=== PATIENT | female | born 1995 | race Asian ===

== ENCOUNTER 2021-03-26 14:10 | Emergency (ER) | payer OTHER, SELFPAY ==
[2021-03-26 14:38] VITALS: BP 105/73; PULSE 94; RESP 18; TEMP 37.1; O2SAT 96; BMI 22.8
--- NOTE | 2021-03-26 15:22 | ED.ALLEREA ---
HPI - Allergic Reaction General Chief complaint: Allergic Reaction Stated complaint: allergic reaction Time Seen by Provider: 03/26/21 15:11 Source: patient Mode of arrival: ambulatory Limitations: no limitations History of Present Illness HPI narrative: 26-year-old female with a past medical history of bipolar 1 disorder, asthma, tendinitis and carpal tunnel syndrome presenting to the ED with complaints of allergic reaction with mild upper lip swelling and itchiness after eating almond butter approximately 1:30 prior to arrival. Reports that she has eaten this in the past and has never had a reaction. Denies any other symptom complaints or concerns at this time. 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[employer]) Exposure: food (almond butter) Symptoms: itching and lip swelling (mild upper lip) Severity: mild Treatment prior to arrival: none Previous Allergic Reaction History: none Related Data Previous Rx's Medication Instructions Recorded diphenhydramine HCl [Benadryl 50 mg PO TID PRN #20 tab 03/26/21 Allergy] epinephrine [EpiPen] 0.3 mg IM Q20M PRN #2 ea 03/26/21 famotidine [Pepcid] 20 mg PO BID #20 tab 03/26/21 prednisone 40 mg PO DAILY 5 Days #10 tab 03/26/21 Allergies Allergy/AdvReac Type Severity Reaction Status Date / Time haloperidol [From Haldol] Allergy Unknown Verified 03/26/21 14:37 lamotrigine [From Lamictal] Allergy Angioedema Verified 03/26/21 14:37 olanzapine [From Zyprexa] Allergy Fainting Verified 03/26/21 14:37 prazosin AdvReac Hypotension Verified 03/26/21 14:37 Review of Systems Review of Systems: Constitutional : No Fever, No Chills , no body aches, no recent illness Head/Face: Positive upper lip swelling, No facial swelling, No facial redness ENT/Mouth : No oral/throat swelling, No Hoarseness, No Swallowing Difficulty Eyes: No Eye Pain, No Swelling, No Redness Cardiovascular : No Chest Pain, No SOB, No palpitations Respiratory : No Cough, No Sputum, No Wheezing, No Smoke Exposure, No Dyspnea Gastrointestinal : No Nausea, No Vomiting, No Diarrhea, No abdominal Pain Genitourinary : No Dysuria, No Urinary Frequency, No Hematuria Musculoskeletal : No joint pain, No Myalgias, No Joint Swelling Skin : No Skin Lesions, no rash Neuro : No Weakness, No Numbness, No Headache, No dizziness, No tingling Psych : No Anxiety/Panic, No Depression Heme/Lymph: No Bruising, No Lymphadenopathy Endocrine : No Polyuria, No Polydipsia Denies changes in lotions or detergents. Denies new medications or any changes in medications. Denies drainage from rash. Denies any recent sick contacts or recent travel. Yes all other systems are reviewed and are negative [facility] Past Medical History Attestation statement: The following information was validated with the patient. Medical History Asthma Bipolar 1 disorder Carpal tunnel syndrome Tendinitis Social History Social History Advance Directives: No Advance Directives Information Provided: Yes Patient : No Physical Exam Vital Signs: Vital Signs: Last Vital Signs Temp 98.7 F 03/26/21 14:38 Pulse 94 03/26/21 14:38 Resp 18 03/26/21 14:38 BP 105/73 03/26/21 14:38 Pulse Ox 96 03/26/21 14:38 Body Mass Index 22.8 vital signs have been reviewed as normal and appeared to be correct. Blood pressure normal. Heart rate normal. Respiration rate normal. Temperature normal. Oxygen saturation normal. Appearance: Alert. Oriented X3. No acute distress. Head: Normal external exam. Normocephalic. Eyes: PERRLA. EOMI. Conjunctiva and sclera normal. Eyelids normal. ENT: Mild upper lip swelling otherwise no rashes noted. Pharynx normal. Uvula midline. Moist mucous membranes. No trismus noted. No drooling noted. No muffled voice noted. Neck: Normal inspection. Neck supple. FROM. No adenopathy. No meningeal signs. CVS: Normal heart rate and rhythm. Heart sound normal. No murmurs noted. Pulses normal throughout. Respiratory: No respiratory distress. Painless inspiration. Breath sounds normal. No wheezes/rales/rhonchi noted. Chest nontender. No accessory muscle usage noted or decreased air movement noted. Abdomen: Soft and nontender. Nondistended. No guarding. No rigidity. Bowel sounds normal in all 4 quadrants. No distention noted. No organomegaly noted. No visible injury noted. No rebound tenderness. Negative Rovsing sign. Negative obturator's sign. Negative psoas sign. Negative Maradiaga sign. Back: No CVA tenderness. Full range of motion noted. Skin: Skin warm and dry. Normal skin color. Normal skin turgor. No rashes/lesions/lacerations noted. Extremities: Extremities exhibit normal range of motion. Extremities nontender. Neuro: Oriented X 3. No motor deficit. No sensory deficit. Reflexes normal. Normal steady gait. Course Course Course Narrative: IMP/Plan: Allergic rxn. Not anaphylaxis. Not sepsis/ infectious etiology. Patient well appearing in no acute distress, breathing easily without throat symptoms. Speaking full sentences, and handling secretions without difficulty. There is no obvious threat to airway. Lungs are CTA in all [place]. No signs of angioedema, stridor, airway compromise, anaphylaxis or anaphylactic shock. Not c/w SSSS/ TEN/ Eryth multiforme/ Daley Johnsons. Given HPI and PE - Will watch and observe. If patient continues to be symptom free - will d/c with return precautions. Patient understands and agrees with plan MDM - Allergic Reaction Medical Records Attestation: I reviewed the patient's medical records. Discharge Plan Discharge Clinical Impression: Allergic reaction Patient Disposition: Home, Self-Care Instructions: Anaphylaxis (ED), Allergies (ED), Allergy Testing (ED) Prescriptions: New prednisone 20 mg tablet 40 mg PO DAILY 5 Days Qty: 10 RF: 0 famotidine [Pepcid] 20 mg tablet 20 mg PO BID Qty: 20 RF: 0 epinephrine [EpiPen] 0.3 mg/0.3 mL auto-injector 0.3 mg IM Q20M PRN (Reason: anaphylaxis) Qty: 2 RF: 0 diphenhydramine HCl [Benadryl Allergy] 25 mg tablet 50 mg PO TID PRN (Reason: allergic reaction) Qty: 20 RF: 0 Referrals: Physician,None [Primary Care Provider] - 2 days (You need to follow-up with her primary care provider for allergy testing. Return if any new or worsening symptoms.) Stand Alone Forms: Work/School Release Print Language: Korean
== END 2021-03-26 15:54 | disposition home or self-care (01) ==
PROVIDERS: Emergency Provider Emergency Medicine
DX: T78.40XA Allergy, unspecified, initial encounter (principal); R22.0 Localized swelling, mass and lump, head; X58.XXXA Exposure to other specified factors, initial encounter
CPT/HCPCS: 99283

== ENCOUNTER 2021-04-12 00:05 | Emergency (ER) | payer OTHER, SELFPAY ==
[2021-04-12 00:06] VITALS: BP 120/70; PULSE 110; O2SAT 100
[2021-04-12 00:09] VITALS: RESP 18; BMI 22.0
[2021-04-12 00:10] VITALS: BP 116/66; PULSE 102; RESP 16; TEMP 36.6; O2SAT 99
--- NOTE | 2021-04-12 00:14 | ED.ALLEREA ---
HPI - Allergic Reaction General Chief complaint: Allergic Reaction Stated complaint: allergic reation Time Seen by Provider: 04/12/21 00:14 Source: patient Mode of arrival: ambulatory Limitations: no limitations History of Present Illness HPI narrative: Patient has questionable allergic reactions to nuts had pizza today with knots crusting head had 2 pieces of it and within 30 minutes of that noticed stiffness in the neck and started throwing up patient started having allergic reaction took EpiPen at home now she is feeling better. No hives no itching no stridor no shortness of breath patient has similar reaction when she had almond butter last week Related Data Previous Rx's Medication Instructions Recorded diphenhydramine HCl [Benadryl 50 mg PO TID PRN #20 tab 03/26/21 Allergy] epinephrine [EpiPen] 0.3 mg IM Q20M PRN #2 ea 03/26/21 famotidine [Pepcid] 20 mg PO BID #20 tab 03/26/21 prednisone 40 mg PO DAILY 5 Days #10 tab 03/26/21 Allergies Allergy/AdvReac Type Severity Reaction Status Date / Time haloperidol [From Haldol] Allergy Unknown Verified 03/26/21 14:37 lamotrigine [From Lamictal] Allergy Angioedema Verified 03/26/21 14:37 olanzapine [From Zyprexa] Allergy Fainting Verified 03/26/21 14:37 prazosin AdvReac Hypotension Verified 03/26/21 14:37 Review of Systems Review of Systems: Yes all other systems are reviewed and are negative [facility] Past Medical History Medical History Asthma Bipolar 1 disorder Carpal tunnel syndrome Tendinitis Social History Social History Alcohol intake: current Alcohol intake frequency: 0-2 drinks per day Patient Tobacco Use Status: Tobacco use Unknown Smoked in Last 30 Days: Yes Use of substances other than those prescribed or required for medical reasons: Refusing to respond Advance Directives: No Patient : No Physical Exam Vital Signs: Vital Signs: Last Vital Signs Temp 98 F 04/12/21 00:10 Pulse 102 H 04/12/21 00:10 Resp 16 04/12/21 00:10 BP 116/66 04/12/21 00:10 Pulse Ox 99 04/12/21 00:10 Body Mass Index 22.0 Appearance: Alert. Oriented X3. No acute distress. Anxious Eyes: PERRLA, No Nystagmus ENT: Pharynx normal. Oral Mucosa moist no uvular swelling lips are normal no stridor Neck: Normal inspection. Neck supple. CVS: Normal heart rate and rhythm. Pulses normal. Respiratory: No respiratory distress. Equal air entry bilateral, no wheezing/rales/rhonchi Abdomen: Soft and nontender. Bowel sounds are present, no mass palpable, no CVA tenderness Skin: Skin warm and dry. Normal skin color. Normal skin turgor. Extremities: No lower extremity edema. No calf tenderness Neuro: Oriented X 3. No motor deficit. No sensory deficit. MDM - Allergic Reaction MDM Narrative Medical decision making narrative: Although patient said patient had an allergic reaction clinically is not very clear as patient has no rash no speech problem no swelling of the lips but patient started throwing up at home possible anxiety reaction versus allergic reaction. Discharge Plan Discharge Clinical Impression: Allergic reaction Qualifiers: Encounter type: initial encounter Qualified Code(s): T78.40XA - Allergy, unspecified, initial encounter Patient Disposition: Home, Self-Care Instructions: Food Allergy (ED) Additional Instructions: For your PCP for further testing. Start taking prednisone tomorrow if allergy symptoms continues Benadryl 1-2 tablets every 6 hours as needed Prescriptions: No Action prednisone 20 mg tablet 40 mg PO DAILY 5 Days Qty: 10 RF: 0 famotidine [Pepcid] 20 mg tablet 20 mg PO BID Qty: 20 RF: 0 epinephrine [EpiPen] 0.3 mg/0.3 mL auto-injector 0.3 mg IM Q20M PRN (Reason: anaphylaxis) Qty: 2 RF: 0 diphenhydramine HCl [Benadryl Allergy] 25 mg tablet 50 mg PO TID PRN (Reason: allergic reaction) Qty: 20 RF: 0
[2021-04-12] MEDS: methylPREDNISolone Sod Succ 125 MG/2 ML VIAL IVPUSH (00:32)
== END 2021-04-12 00:55 | disposition home or self-care (01) ==
PROVIDERS: Emergency Provider Internal Medicine
DX: T78.1XXA Other adverse food reactions, not elsewhere classified, initial encounter (principal); R11.10 Vomiting, unspecified; X58.XXXA Exposure to other specified factors, initial encounter
CPT/HCPCS: 96374; 99284; J2930